=== PATIENT | female | born 1945 | race Caucasian/White ===

== ENCOUNTER 2020-07-21 15:00 | Observation (INO) ==
[2020-07-21] MEDS ORDERED: *HR* HYDROcodone/Acet 5/325 mg TABLET PO ONE (16:13)
[2020-07-21 17:16] LABS: Basophils # 0.1 K/mcL (0.0-0.2); Basophils % 0.6 %; Eosinophils % 0.3 %; Hematocrit 40.5 % (35.3-44.9); Hemoglobin 12.2 g/dL (11.5-15.4); Immature Granulocytes % 0.2 % (0-4); Lymphocytes # 2.4 K/mcL (0.6-4.6); Lymphocytes % 17.6 %; Mean Corpuscular HGB Conc 30.1 g/dL (31.6-35.5); Mean Corpuscular Hemoglobin 25.1 pg (28.0-33.3); Mean Corpuscular Volume 83.3 fL (83.0-100.0); Mean Platelet Volume 9.7 fL (9.4-12.4); Monocytes # 0.7 K/mcL (0.0-1.3); Monocytes % 5.1 %; Neutrophils # 10.3 K/mcL (1.6-8.9); Platelet Count 305 K/mcL (140-400); Prothrombin Time 11.8 Seconds (9.4-12.1); Red Blood Count 4.86 M/mcL (3.82-4.97); Red Cell Distribution Width 15.1 % (11.5-14.5); Segmented Neutrophils % 76.2 %; White Blood Count 13.5 K/mcL (4.3-11.1)
[2020-07-21 17:19] LABS: Activated Partial Thrombo Time 27.4 Seconds (26.0-36.0)
[2020-07-21 17:30] LABS: Calcium 9.6 mg/dL (8.6-10.3); Potassium 4.2 mEq/L (3.5-5.1)
[2020-07-21] MEDS ORDERED: Acetaminophen 325 MG TABLET PO PRN (19:55)
[2020-07-21] MEDS ORDERED: Naloxone 0.4 MG/ML INJ IVP PRN (19:55)
[2020-07-21] MEDS ORDERED: Ondansetron 4 MG/2 ML VIAL IVP PRN (19:55)
[2020-07-21] MEDS ORDERED: D5% in Water 1,000 ML IVC PRN (20:07)
[2020-07-21] MEDS ORDERED: *HR* Dextrose 50 % in Water (Vial) 50 ML VIAL IVP PRN (20:07)
[2020-07-21] MEDS ORDERED: Dextrose Gel 15 GM/37.5 ML TUBE PO PRN ×2 (20:07)
[2020-07-21] MEDS ORDERED: *HR* Labetalol 20 MG/4 ML SYRINGE IVP PRN (20:23)
[2020-07-21] MEDS: *HR* OxyCODONE Immed Rel 5 MG TABLET PO PRN (20:29)
[2020-07-21] MEDS: *HR* Heparin 5,000 UNIT/ML VIAL SQ SCH (22:17)
[2020-07-21] MEDS: Ringers Solution, Lactated 1,000 ML IVC SCH (22:17)
[2020-07-22] MEDS: Insulin LISPRO 300 UNITS/3 ML VIAL SQ SCH ×3 (00:37→12:05)
[2020-07-22] MEDS: *HR* OxyCODONE Immed Rel 5 MG TABLET PO PRN (03:22)
[2020-07-22 05:24] LABS: INR 1.1; Prothrombin Time 12.6 Seconds (9.4-12.1)
[2020-07-22 05:27] LABS: Basophils # 0.1 K/mcL (0.0-0.2); Basophils % 0.6 %; Eosinophils % 0.1 %; Hematocrit 36.7 % (35.3-44.9); Hemoglobin 11.1 g/dL (11.5-15.4); Immature Granulocytes % 0.3 % (0-4); Lymphocytes # 2.8 K/mcL (0.6-4.6); Lymphocytes % 36.8 %; Mean Corpuscular HGB Conc 30.2 g/dL (31.6-35.5); Mean Corpuscular Hemoglobin 25.5 pg (28.0-33.3); Mean Corpuscular Volume 84.2 fL (83.0-100.0); Mean Platelet Volume 10.1 fL (9.4-12.4); Monocytes # 0.8 K/mcL (0.0-1.3); Monocytes % 9.9 %; Platelet Count 270 K/mcL (140-400); Red Blood Count 4.36 M/mcL (3.82-4.97); Red Cell Distribution Width 14.9 % (11.5-14.5); Segmented Neutrophils % 52.3 %; White Blood Count 7.7 K/mcL (4.3-11.1)
[2020-07-22 05:40] LABS: Calcium 9.2 mg/dL (8.6-10.3); Magnesium 1.7 mg/dL (1.6-2.6); Potassium 3.8 mEq/L (3.5-5.1)
[2020-07-22] MEDS: *HR* Heparin 5,000 UNIT/ML VIAL SQ SCH (05:58)
[2020-07-22] MEDS: Ringers Solution, Lactated 1,000 ML IVC SCH (08:47)
[2020-07-22] MEDS ORDERED: ceFAZolin 2,000 MG in Water for inj. (sterile) 20 ML IVP ONE (10:27)
[2020-07-22] MEDS ORDERED: *HR* Midazolam HCl 2 MG/2 ML VIAL ONE (10:28)
[2020-07-22] MEDS ORDERED: Ropivacaine/PF 0.5% 30 ML VIAL ONE (10:29)
[2020-07-22] MEDS ORDERED: *HR* FentaNYL (PF) 100 MCG/2 ML VIAL ONE (10:29)
[2020-07-22] MEDS ORDERED: Ethanol\\Acetic Acid\\Na Ace\\Ben 1,000 ML IRRIG.SOLN IR ONE (10:54)
[2020-07-22] MEDS ORDERED: Vancomycin 1,000 MG VIAL ONE (10:54)
[2020-07-22] MEDS ORDERED: *HR* Propofol 200 MG/20 ML VIAL IVP ONE (11:17)
[2020-07-22] MEDS ORDERED: *HR* Succinylcholine 200 MG/10 ML VIAL IVP ONE (11:17)
[2020-07-22] MEDS ORDERED: Ondansetron 4 MG/2 ML VIAL ONE (11:17)
[2020-07-22] MEDS ORDERED: Dexamethasone 4 MG/ML VIAL ONE (11:17)
[2020-07-22] MEDS ORDERED: Lidocaine HCL 4 ML Topical Solution (Laryng-O-Jet Kit Sterile Pak) TP ONE (11:17)
[2020-07-22] MEDS ORDERED: Lidocaine -MPF 2% 2 ML VIAL ONE (11:17)
[2020-07-22] MEDS ORDERED: *HR* PHENYLEPHRINE 1,000 MCG/10 ML SYRINGE IVP ONE (11:18)
[2020-07-22] MEDS ORDERED: Dextrose Gel 15 GM/37.5 ML TUBE PO PRN ×2 (13:16)
[2020-07-22] MEDS ORDERED: *HR* Labetalol 20 MG/4 ML SYRINGE IVP PRN (13:16)
[2020-07-22] MEDS ORDERED: *HR* Dextrose 50 % in Water (Vial) 50 ML VIAL IVP PRN (13:16)
[2020-07-22] MEDS ORDERED: MOM Conc 10 ML UD.LIQ PO PRN (13:16)
[2020-07-22] MEDS ORDERED: Naloxone 0.4 MG/ML INJ IVP PRN (13:16)
[2020-07-22] MEDS ORDERED: Sennosides 8.6 MG TABLET PO PRN (13:16)
[2020-07-22] MEDS ORDERED: Ondansetron 4 MG/2 ML VIAL IVP PRN (13:16)
[2020-07-22] MEDS ORDERED: D5% in Water 1,000 ML IVC PRN (13:16)
[2020-07-22 13:22] LABS: Hemoglobin 11.3 g/dL (11.5-15.4)
[2020-07-22] MEDS ORDERED: Insulin LISPRO 300 UNITS/3 ML VIAL SQ SCH (18:00)
[2020-07-22] MEDS: *HR* Enoxaparin 30 MG/0.3 ML SYRINGE SQ SCH (19:19)
[2020-07-22] MEDS: CeFAZolin 2 GM/120 ML BAG IVPB SCH (20:36)
[2020-07-23] MEDS: *HR* OxyCODONE/APAP 5/325 TABLET PO PRN ×2 (01:56→06:38)
[2020-07-23 02:38] LABS: Hematocrit 38.2 % (35.3-44.9); Hemoglobin 11.7 g/dL (11.5-15.4)
[2020-07-23 02:53] LABS: Calcium 9.2 mg/dL (8.6-10.3)
[2020-07-23] MEDS: Ringers Solution, Lactated 1,000 ML IVC SCH ×3 (03:11→03:12)
[2020-07-23] MEDS: CeFAZolin 2 GM/120 ML BAG IVPB SCH (03:16)
[2020-07-23] MEDS: *HR* OxyCODONE Immed Rel 5 MG TABLET PO PRN ×2 (04:00→09:34)
[2020-07-23] MEDS: *HR* Enoxaparin 30 MG/0.3 ML SYRINGE SQ SCH (06:11)
[2020-07-23 07:18] VITALS: BP 148/63
[2020-07-23] MEDS ORDERED: Insulin LISPRO 300 UNITS/3 ML VIAL SQ SCH ×2 (07:30→21:00)
== END 2020-07-23 11:15 | disposition home or self-care (01) | DRG 483 ==
LOC: EMEROOARM 15:00 → 3NENU 15:00 → SUATTDRO 20:38 → 3NENU 21:49
PROVIDERS: ADMIT Family Medicine; ATTEND Internal Medicine